=== PATIENT | female | born 1990 | race Caucasian/White ===

== ENCOUNTER 2023-05-02 11:57 | Emergency (ER) | payer OTHER ==
[~2023-05-02] VITALS: Ht 154.9 cm; Wt 57.5 kg
[2023-05-02 14:32] LABS: BASO # 0.1 10^3/uL (0.0-0.2); BASO % 0.5 % (0.0-1.0); EOS # 0.1 10^3/uL (0.0-0.5); EOS % 0.7 % (0.0-3.0); HEMATOCRIT 44.5 % (36.0-47.0); HEMOGLOBIN 14.5 g/dl (12.0-15.5); LYMPH # 2.2 10^3/uL (1.5-5.0); LYMPH % 18.2 % (24.0-44.0); MEAN CORPUSCULAR HEMOGLOBIN 28.7 pg (27.0-33.0); MEAN CORPUSCULAR HGB CONC 32.6 g/dl (32.0-36.5); MEAN CORPUSCULAR VOLUME 88.1 fl (80.0-96.0); MONO # 0.7 10^3/uL (0.0-0.8); MONO % 5.4 % (2.0-8.0); NEUTROPHILS # 8.9 10^3/uL (1.5-8.5); NEUTROPHILS % 74.8 % (36.0-66.0); PLATELET COUNT, AUTOMATED 319 10^3/uL (150-450); RED BLOOD COUNT 5.05 10^6/uL (4.00-5.40); WHITE BLOOD COUNT 11.9 10^3/uL (4.0-10.0)
[2023-05-02 14:55] LABS: LIPASE 45 U/L (12-53)
[2023-05-02 14:58] LABS: ALBUMIN 4.4 G/DL (3.2-5.2); ALKALINE PHOSPHATASE 69 U/L (46-116); ALT/SGPT 15 U/L (7.0-40); AST/SGOT 14 U/L (<34); BILIRUBIN,DIRECT 0.3 MG/DL (<0.4); BILIRUBIN,TOTAL 0.7 MG/DL (0.3-1.2); BLOOD UREA NITROGEN 6 MG/DL (9-23); CALCIUM LEVEL 9.4 MG/DL (8.5-10.1); CARBON DIOXIDE LEVEL 26 MMOL/L (20-31); CHLORIDE LEVEL 106 MMOL/L (98-107); CREATININE FOR GFR 0.58 MG/DL (0.55-1.30); GLOMERULAR FILTRATION RATE > 60.0 (>60); GLUCOSE, FASTING 87 MG/DL (60-100); POTASSIUM SERUM 4.3 MMOL/L (3.5-5.1); SODIUM LEVEL 142 MMOL/L (136-145); TOTAL PROTEIN 7.4 G/DL (5.7-8.2)
[2023-05-02] MEDS ORDERED: ONDANSETRON 4MG 2ML VIAL IV ONE (15:55)
[2023-05-02] MEDS ORDERED: MAALOX 30 ML SUSP *UDC PO ONE (15:55)
[2023-05-02 16:18] LABS: HCG, SERUM QUALITATIVE NEGATIVE (NEGATIVE)
[2023-05-02 16:19] LABS: CK-MB VALUE MASS < 1.0 NG/ML (<3.6); CPK CREATINE PHOSPHOKINASE 50 U/L (34-145)
[2023-05-02] MEDS ORDERED: ISOVUE-370 76% 100ML VIAL As Ordered ONE (16:32)
[2023-05-02 18:26] VITALS: BP 104/69; TEMP 98.3; O2SAT 100
== END 2023-05-02 18:28 | disposition home or self-care (01) ==
LOC: M ED 11:57
DX: R10.13 Epigastric pain (principal); K21.9 Gastro-esophageal reflux disease without esophagitis; Z91.018 Allergy to other foods
CPT/HCPCS: 71046; 71275; 74177; 80048; 80076; 82550; 82553; 83690; 84484; 84703; 85025; 93005; 96374; 99284; J2405; Q9967

== ENCOUNTER → 2023-05-10 | Outpatient (CLI) | payer OTHER | LOC: EDUNIT# 05-04 11:00 → M RAD 07:27 | PROVIDERS: ATTEND Internal Medicine Gastroenterology | DX: R10.13 Epigastric pain (principal) ==

== ENCOUNTER 2023-05-24 11:47 | Day surgery (SDC) | payer OTHER ==
[~2023-05-24] VITALS: Ht 154.9 cm; Wt 58.2 kg
[~2023-05-24 11:47] MED LIST: ALBU8.5H; NS 1,000 ML IV ONE; OMEP-173 PO; ONDA4TAB6 PO; PYLE1CAP PO; [UNRECOGNIZED DRUG - CODE] PO
[2023-05-24] MEDS ORDERED: LIDOCAINE 2% 100MG/5ML SDV (FOR ANES.) As Ordered ONE (13:48)
[2023-05-24] MEDS ORDERED: propofoL 200 MG/20 ML VIAL As Ordered ONE (13:48)
[2023-05-24] MEDS ORDERED: fentaNYL 100 MCG/2 ML INJECTION As Ordered ONE (13:48)
[2023-05-24 14:04] VITALS: TEMP 98.1
[2023-05-24 14:21] VITALS: BP 113/65; O2SAT 100
== END 2023-05-24 14:21 | disposition home or self-care (01) ==
LOC: M OPP 11:47 → EDUNIT# 05-27 07:30
PROVIDERS: ATTEND Internal Medicine Gastroenterology
DX: K29.70 Gastritis, unspecified, without bleeding (principal); B96.81 Helicobacter pylori [H. pylori] as the cause of diseases classified elsewhere; K21.9 Gastro-esophageal reflux disease without esophagitis; G43.909 Migraine, unspecified, not intractable, without status migrainosus; Z91.018 Allergy to other foods; Z79.899 Other long term (current) drug therapy; Z80.0 Family history of malignant neoplasm of digestive organs; Z80.3 Family history of malignant neoplasm of breast; Z80.41 Family history of malignant neoplasm of ovary; Z80.49 Family history of malignant neoplasm of other genital organs
CPT/HCPCS: 43239; 88305; J3010

== ENCOUNTER → 2023-06-22 | Outpatient (CLI) | payer OTHER ==
[~2023-06-22] MED LIST changes: +ACET325C5 PO; +IBUP-1022 PO; +MELA1TAB9; -NS 1,000 ML IV ONE
== END ==
LOC: M RAD 07:01
PROVIDERS: ATTEND Internal Medicine Gastroenterology
DX: R10.13 Epigastric pain (principal)
CPT/HCPCS: 78227; A9537

== ENCOUNTER 2023-07-20 17:36 | Emergency (ER) | payer OTHER ==
[~2023-07-20] VITALS: Ht 154.9 cm; Wt 57.0 kg
[2023-07-20] MEDS ORDERED: EPIN0.3I11 (17:51)
[2023-07-20] MEDS ORDERED: NORGTAB2 PO (17:51)
[2023-07-20] MEDS ORDERED: ALLE4TAB12 PO (17:51)
[2023-07-20 18:31] LABS: BASO # 0.1 10^3/uL (0.0-0.2); BASO % 0.6 % (0.0-1.0); EOS # 0.3 10^3/uL (0.0-0.5); EOS % 2.6 % (0.0-3.0); HEMATOCRIT 43.3 % (36.0-47.0); HEMOGLOBIN 14.2 g/dl (12.0-15.5); LYMPH # 2.8 10^3/uL (1.5-5.0); LYMPH % 26.9 % (24.0-44.0); MEAN CORPUSCULAR HGB CONC 32.8 g/dl (32.0-36.5); MEAN CORPUSCULAR VOLUME 88.5 fl (80.0-96.0); MONO # 0.7 10^3/uL (0.0-0.8); MONO % 6.7 % (2.0-8.0); NEUTROPHILS # 6.5 10^3/uL (1.5-8.5); PLATELET COUNT, AUTOMATED 342 10^3/uL (150-450); RED BLOOD COUNT 4.89 10^6/uL (4.00-5.40); WHITE BLOOD COUNT 10.3 10^3/uL (4.0-10.0)
[2023-07-20 18:53] LABS: BLOOD UREA NITROGEN 11 MG/DL (9-23); CALCIUM LEVEL 9.2 MG/DL (8.5-10.1); CARBON DIOXIDE LEVEL 30 MMOL/L (20-31); CHLORIDE LEVEL 104 MMOL/L (98-107); GLOMERULAR FILTRATION RATE > 60.0 (>60); GLUCOSE, FASTING 81 MG/DL (60-100); POTASSIUM SERUM 3.7 MMOL/L (3.5-5.1); SODIUM LEVEL 141 MMOL/L (136-145)
[2023-07-20] MEDS ORDERED: ISOVUE-370 76% 100ML VIAL As Ordered ONE (18:55)
[2023-07-20 19:11] LABS: HCG, SERUM QUALITATIVE NEGATIVE (NEGATIVE)
[2023-07-20 22:08] VITALS: BP 113/69; TEMP 97.5; O2SAT 98
== END 2023-07-20 22:15 | disposition home or self-care (01) ==
LOC: M ED 17:36
DX: Z48.817 Encounter for surgical aftercare following surgery on the skin and subcutaneous tissue (principal); Z79.899 Other long term (current) drug therapy; Z88.8 Allergy status to other drugs, medicaments and biological substances; Z88.1 Allergy status to other antibiotic agents; Z91.018 Allergy to other foods
CPT/HCPCS: 74177; 80048; 83605; 84703; 85025; 87040; 87486; 87581; 87633; 87798; 99284; Q9967

== ENCOUNTER → 2024-04-27 | Outpatient (CLI) | payer OTHER ==
[~2024-04-27] MED LIST changes: +ALLE4TAB12 PO; +EPIN0.3I11; -MELA1TAB9; +MELA5TAB58; +NORGTAB2 PO; +ONDA-282 PO; -ONDA4TAB6 PO
== END ==
LOC: M PLARAD 14:51
PROVIDERS: ATTEND Physician Assistant
DX: M47.22 Other spondylosis with radiculopathy, cervical region (principal)

== ENCOUNTER → 2024-05-08 | Outpatient (CLI) | payer OTHER | LOC: M RAD 07:10 | PROVIDERS: ATTEND Surgery | DX: K82.4 Cholesterolosis of gallbladder (principal) ==

== ENCOUNTER → 2024-05-31 | Outpatient (CLI) | payer OTHER | LOC: M PLAIMG 09:46 | PROVIDERS: ATTEND Physician Assistant | DX: Q76.49 Other congenital malformations of spine, not associated with scoliosis (principal); M50.320 Other cervical disc degeneration, mid-cervical region, unspecified level ==

== ENCOUNTER → 2024-06-27 | Outpatient (POV) | payer OTHER ==
[~2024-06-27] MED LIST changes: +CALCTAB93; +CETI-24 PO; -EPIN0.3I11; +EPIN0.3I11 SUBQ; +FAMO1TAB11 PO; +MEDR4PAK PO; -MELA5TAB58; +MELA5TAB58 PO; +NORA0.35 PO; +SUCR1TAB56 PO; +TIZA2CAP PO; +TUMS500C PO
== END ==
LOC: M IRPOV 15:30
PROVIDERS: ATTEND Radiology Diagnostic Radiology
DX: R10.2 Pelvic and perineal pain (principal); G89.29 Other chronic pain; Z79.3 Long term (current) use of hormonal contraceptives; Z88.1 Allergy status to other antibiotic agents; Z88.8 Allergy status to other drugs, medicaments and biological substances; Z91.018 Allergy to other foods

== ENCOUNTER 2024-07-10 03:51 | Observation (INO) | payer OTHER ==
[~2024-07-10] VITALS: Ht 154.9 cm; Wt 62.2 kg
[~2024-07-10 03:51] MED LIST changes: -CALCTAB93; -CETI-24 PO; -FAMO1TAB11 PO; -MEDR4PAK PO; -NORA0.35 PO; -SUCR1TAB56 PO; -TIZA2CAP PO; -TUMS500C PO
[2024-07-10 04:44] LABS: BASO # 0.1 10^3/uL (0.0-0.2); BASO % 0.5 % (0.0-1.0); EOS # 0.1 10^3/uL (0.0-0.5); EOS % 0.6 % (0.0-3.0); HEMATOCRIT 39.2 % (36.0-47.0); HEMOGLOBIN 13.2 g/dl (12.0-15.5); LYMPH # 1.2 10^3/uL (1.5-5.0); LYMPH % 12.6 % (24.0-44.0); MEAN CORPUSCULAR HEMOGLOBIN 30.6 pg (27.0-33.0); MEAN CORPUSCULAR HGB CONC 33.7 g/dl (32.0-36.5); MONO % 10.1 % (2.0-8.0); NEUTROPHILS # 7.2 10^3/uL (1.5-8.5); NEUTROPHILS % 75.9 % (36.0-66.0); PLATELET COUNT, AUTOMATED 231 10^3/uL (150-450); RED BLOOD COUNT 4.31 10^6/uL (4.00-5.40); WHITE BLOOD COUNT 9.5 10^3/uL (4.0-10.0)
[2024-07-10 05:28] LABS: ALBUMIN 3.7 G/DL (3.2-5.2); ALKALINE PHOSPHATASE 71 U/L (35-104); ALT/SGPT 16 U/L (7.0-40); AST/SGOT 9 U/L (<34); BILIRUBIN,TOTAL 0.6 MG/DL (0.3-1.2); BLOOD UREA NITROGEN 7 MG/DL (9-23); CALCIUM LEVEL 8.5 MG/DL (8.5-10.1); CARBON DIOXIDE LEVEL 27 MMOL/L (20-31); CHLORIDE LEVEL 111 MMOL/L (98-107); CREATININE FOR GFR 0.49 MG/DL (0.55-1.30); GLOMERULAR FILTRATION RATE > 60.0 (>60); GLUCOSE, FASTING 87 MG/DL (60-100); POTASSIUM SERUM 3.8 MMOL/L (3.5-5.1); SODIUM LEVEL 143 MMOL/L (136-145); TOTAL PROTEIN 6.5 G/DL (5.7-8.2)
[2024-07-10] MEDS: METOCLOPRAMIDE INJ 10MG/2ML VIAL IV ONE (07:30)
[2024-07-10] MEDS: ACETAMINOPHEN 500 MG TAB PO ONE (07:46)
[2024-07-10] MEDS: KETOROLAC 30 MG/ML 1ML VIAL IV ONE (07:48)
[2024-07-10] MEDS: diphenhydrAMINE 50MG/ML VIAL IV ONE ×2 (07:49→18:16)
[2024-07-10] MEDS ORDERED: SUCR1TAB56 PO (08:10)
[2024-07-10] MEDS ORDERED: FAMO1TAB11 PO (08:10)
[2024-07-10] MEDS ORDERED: CETI-24 PO (08:10)
[2024-07-10] MEDS ORDERED: CALCTAB93 (08:10)
[2024-07-10] MEDS: CETIRIZINE (ZyrTEC) 10 MG TAB PO SCH (09:00)
[2024-07-10] MEDS: PANTOPRAZOLE 40MG TAB (PROTONIX) PO SCH (09:00)
[2024-07-10] MEDS ORDERED: NORA0.35 PO (11:06)
[2024-07-10] MEDS ORDERED: TUMS500C PO (11:07)
[2024-07-10] MEDS ORDERED: HOME MED LIST COMPLETE! XX SCH (11:20)
[2024-07-10] MEDS: ACETAMINOPHEN 500 MG TAB PO SCH (11:55)
[2024-07-10] MEDS: carisoprodoL 350 MG TAB PO ONE ×2 (11:56→13:17)
[2024-07-10] MEDS ORDERED: SUCRALFATE 1 GM TAB PO SCH (12:00)
[2024-07-10] MEDS ORDERED: CALCIUM CARBONATE 500 MG CHEW U/D PO PRN (12:05)
[2024-07-10] MEDS ORDERED: RIZATRIPTAN BENZOATE 10 MG TAB PO PRN (12:10)
[2024-07-10] MEDS: LIDOCAINE 5% (LIDODERM) PATCH TD SCH (12:54)
[2024-07-10] MEDS: NS 1,000 ML IV ONE (12:56)
[2024-07-10] MEDS: NS 1,000 ML IV SCH (13:25)
[2024-07-10] MEDS: METOCLOPRAMIDE INJ 10MG/2ML VIAL IV SCH (14:00)
[2024-07-10] MEDS: KETOROLAC 30 MG/ML 1ML VIAL IV SCH (14:23)
[2024-07-10] MEDS: RIZATRIPTAN BENZOATE 10 MG TAB PO ONE (14:26)
[2024-07-10 15:00] VITALS: BP 114/72; TEMP 98.2; O2SAT 99
[2024-07-10] MEDS: PROMETHAZINE 25MG/ML 1ML VIAL IV PRN (15:27)
[2024-07-10] MEDS ORDERED: HYDROMORPHONE HCL 0.5 MG/ 0.5 ML SYRINGE IV ONE (16:35)
[2024-07-10] MEDS ORDERED: NALOXONE INJ 0.4MG/1ML VIAL IV PRN (16:35)
[2024-07-10] MEDS: ONDANSETRON 4MG 2ML VIAL IV ONE (17:02)
[2024-07-10] MEDS: SUMAtriptan SUCCINATE 6MG/0.5ML VIAL SC ONE (18:33)
[2024-07-10 18:37] LABS: AMPHETAMINES LEVEL URINE NEGATIVE (NEGATIVE); BENZODIAZEPINES URINE NEGATIVE (NEGATIVE)
[2024-07-10 18:38] LABS: BARBITURATES URINE NEGATIVE (NEGATIVE); CANNABINOIDS URINE NEGATIVE (NEGATIVE); COCAINE METABOLITE URINE NEGATIVE (NEGATIVE); METHADONE URINE NEGATIVE (NEGATIVE); OPIATES URINE NEGATIVE (NEGATIVE); PHENCYCLIDINE URINE NEGATIVE (NEGATIVE)
[2024-07-10] MEDS ORDERED: carisoprodoL 350 MG TAB PO PRN (20:00)
[2024-07-10 20:45] VITALS: BP 116/68; TEMP 97.7; O2SAT 99
[2024-07-11 01:00] VITALS: BP 110/66; TEMP 98.3; O2SAT 97
[2024-07-11] MEDS: ONDANSETRON 4MG 2ML VIAL IV PRN (05:16)
[2024-07-11 06:15] LABS: BLOOD UREA NITROGEN 7 MG/DL (9-23); CALCIUM LEVEL 8.4 MG/DL (8.5-10.1); CARBON DIOXIDE LEVEL 24 MMOL/L (20-31); CHLORIDE LEVEL 112 MMOL/L (98-107); CREATININE FOR GFR 0.59 MG/DL (0.55-1.30); GLOMERULAR FILTRATION RATE > 60.0 (>60); GLUCOSE, FASTING 74 MG/DL (60-100); POTASSIUM SERUM 3.8 MMOL/L (3.5-5.1); SODIUM LEVEL 141 MMOL/L (136-145)
[2024-07-11] MEDS: SUCRALFATE 1 GM TAB PO SCH (06:31)
[2024-07-11 08:29] VITALS: BP 108/66; TEMP 97.7; O2SAT 98
[2024-07-11] MEDS ORDERED: tiZANidine 4 MG TAB PO PRN (08:40)
[2024-07-11] MEDS: tiZANidine 4 MG TAB PO ONE (09:05)
[2024-07-11] MEDS: predniSONE 10MG TAB PO SCH (09:05)
[2024-07-11 12:06] VITALS: BP 101/60; TEMP 97.8; O2SAT 97
[2024-07-11] MEDS ORDERED: SUMAtriptan SUCCINATE 6MG/0.5ML VIAL SC PRN (16:00)
[2024-07-11] MEDS ORDERED: MEDR4PAK PO (16:50)
[2024-07-11] MEDS ORDERED: TIZA2CAP PO (16:51)
== END 2024-07-11 17:24 | disposition home or self-care (01) ==
LOC: EDBD 03:51 → M ED 03:51 → M ED INP 03:52 → M PED 14:50
PROVIDERS: ADMIT General Practice; ATTEND General Practice
DX: M50.222 Other cervical disc displacement at C5-C6 level (principal); G43.119 Migraine with aura, intractable, without status migrainosus; R93.0 Abnormal findings on diagnostic imaging of skull and head, not elsewhere classified; M48.02 Spinal stenosis, cervical region; R20.2 Paresthesia of skin; R11.0 Nausea; M79.18 Myalgia, other site; M25.511 Pain in right shoulder; N94.89 Other specified conditions associated with female genital organs and menstrual cycle; Z98.890 Other specified postprocedural states; Z80.41 Family history of malignant neoplasm of ovary; Z80.49 Family history of malignant neoplasm of other genital organs; Z91.018 Allergy to other foods; Z88.1 Allergy status to other antibiotic agents; Z88.3 Allergy status to other anti-infective agents; Z88.8 Allergy status to other drugs, medicaments and biological substances; Z79.899 Other long term (current) drug therapy; Z79.3 Long term (current) use of hormonal contraceptives
CPT/HCPCS: 36415; 70450; 70551; 72125; 72141; 80048; 80053; 80307; 85025; 93005; 96361; 96372; 96374; 96375; 96376; 97116; 97161; 97165; 97530; 99285; J1200; J1885; J2405; J2550; J3030; J7512

== ENCOUNTER → 2024-10-17 | Outpatient (CLI) | payer OTHER ==
[~2024-10-17] MED LIST changes: +CALCTAB93; +CETI-24 PO; +FAMO1TAB11 PO; +MEDR4PAK PO; +NORA0.35 PO; +SUCR1TAB56 PO; +TIZA2CAP PO; +TUMS500C PO
== END ==
LOC: M PLAIMG 13:57
PROVIDERS: ATTEND Student in an Organized Health Care Education/Training Program
DX: R05.9 Cough, unspecified (principal); J47.9 Bronchiectasis, uncomplicated

== ENCOUNTER → 2024-11-13 | Outpatient (CLI) | payer OTHER ==
[~2024-11-13] MED LIST changes: +ISOVUE-370 76% 100ML VIAL As Ordered ONE
== END ==
LOC: M RAD 08:00
PROVIDERS: ATTEND Physician Assistant
DX: H53.8 Other visual disturbances (principal); G43.101 Migraine with aura, not intractable, with status migrainosus; I66.9 Occlusion and stenosis of unspecified cerebral artery; M47.22 Other spondylosis with radiculopathy, cervical region
CPT/HCPCS: 70496; 70498; Q9967

== ENCOUNTER → 2024-11-26 | Outpatient (CLI) | payer OTHER ==
[~2024-11-26] MED LIST changes: -ISOVUE-370 76% 100ML VIAL As Ordered ONE
== END ==
LOC: M CARPUL 07:43
PROVIDERS: ATTEND Student in an Organized Health Care Education/Training Program
DX: J47.9 Bronchiectasis, uncomplicated (principal)

== ENCOUNTER → 2024-12-28 | Outpatient (CLI) | payer OTHER | LOC: M RAD 07:36 | PROVIDERS: ATTEND Student in an Organized Health Care Education/Training Program | DX: R09.81 Nasal congestion (principal) ==